=== PATIENT | male | born 1960 | race Caucasian/White ===

== ENCOUNTER 2024-09-23 11:42 | Inpatient (IN) | payer BC ==
[2024-09-23 12:12] LABS: Absolute Eosinophils 0.1 K/uL (0-0.5); Absolute Lymphocytes (CBC) 1.1 K/uL (0.7-4.9); Absolute Monocytes 0.6 K/uL (0.1-1.3); Absolute Neutrophil 6.3 K/uL (1.8-8.0); Basophils % 0.4 % (0-1.3); Eosinophils % 0.9 % (0-4.4); Hematocrit 46.4 % (39.6-49.0); Hemoglobin 16.2 g/dL (13.6-17.9); MCH 31.6 pg (27.0-35.0); MCHC 34.8 g/dL (32.0-36.0); MCV 90.7 fL (80-100); MPV 9.6 fL (7.6-11.3); Monocytes % 7.7 % (3.3-12.3); Nucleated Red Blood Cells % 0.1 % (0-0); Platelets 189 thou/uL (152-406); RBC Red Blood Cell Count 5.12 M/uL (4.33-5.43); Red Cell Distribution Width 13.3 % (12.1-15.2)
[2024-09-23 12:30] LABS: Albumin/Globulin Ratio 1.1 (1.1-1.8); Anion Gap 8.2 mEq/L (5.0-15.0); Bilirubin Total 0.5 mg/dL (0.2-1.0); Globulin 3.7 g/dL (2.3-3.5); Potassium 4.2 mEq/L (3.5-5.1); Protein, Total 7.7 g/dL (6.4-8.2)
--- NOTE | 2024-09-23 13:58 | RAD REPORT ---
EXAMINATION: CT Abdomen Pelvis W Contrast CLINICAL INDICATION: Male, 64 years old. ABD PAIN TECHNIQUE: CT abdomen and pelvis was performed, after the administration of IV contrast, [facility]. Axial, sagittal and coronal reconstructions were obtained. One or more of the following dose reduction techniques were used: Automated exposure control, adjustment of the mA and k V according to patient size, and iterative reconstruction. Unless otherwise specified, incidental findings do not require dedicated imaging follow-up. COMPARISON: No prior exam. FINDINGS: LOWER CHEST: The visualized lung bases are clear. LIVER: Normal in size and contour. No focal lesion. BILIARY SYSTEM: Mildly distended gallbladder. Small radiodense calculi near the neck, largest measuri ng 8 mm. 2.3 cm hypodense structure with thin marginal calcification near the neck as well, could represent cholesterol containing calculus versus diverticulum with calcified wall. Common bile duct i s grossly nondilated. SPLEEN: Normal size. No focal lesion. PANCREAS: No mass, ductal dilation, or jenny-pancreatic fluid. ADRENALS: Normal; no mass. KIDNEYS: Left volar 6 mm.. No hydronephrosis. URINARY BLADDER: Unremarkable. GASTROINTESTINAL TRACT: No evidence of free air, significant intra-abdominal free fluid, bowel obstru ction or abscess. APPENDIX: Normal appendix. LYMPH NODES: No lymphadenopathy. MUSCULOSKELETAL: No acute or suspicious osseous abnormality. ADDITIONAL FINDINGS: Right inguinal hernia containing fat. Mild prostatomegaly. Bulky appearance of t he right aspect of the seminal vesicles measuring up to 4.4 x 3.6 cm. IMPRESSION: Cholelithiasis. Possible 2.3 cm cholesterol containing stones near the neck versus diverticulum with calcified wall. Bulky appearance of the right aspect of the seminal vesicles, could relate to underlying cyst or mass . This can be further evaluated by contrast-enhanced MRI. Other incidental findings as above.
[2024-09-23] MEDS ORDERED: MORPHINE 4 MG/ML SYR ONE ×2 (14:12→16:39)
[2024-09-23] MEDS ORDERED: ONDANSETRON 4 MG/2 ML VIAL ONE (14:12)
[2024-09-23 14:51] LABS: Urine Bilirubin NEGATIVE (Negative); Urine Blood Negative (Negative); Urine Clarity Clear (Clear); Urine Color Light-Yellow (Yellow); Urine Glucose NEGATIVE (Negative); Urine Ketones 1+ (Negative); Urine Microscopic Reflex YN NO UMIC; Urine Nitrite NEGATIVE (Negative); Urine Protein NEGATIVE (Negative); Urine Urobilinogen Normal (Normal); Urine pH 8.5 (5.0-7.0)
[2024-09-23 14:55] LABS: Specific Gravity > 1.030 (1.005-1.030)
--- NOTE | 2024-09-23 15:00 | RAD REPORT ---
EXAMINATION: US Abdomen Exam Limited CLINICAL HISTORY: [facility] cholelithiasis;Abd pain Bed Name: 5 COMPARISON: None. TECHNIQUE: Limited upper abdominal grayscale and color flow sonographic images. FINDINGS: Gallbladder: Gallstones at the neck up to 1.5 cm. No wall thickening or pericholecystic fluid. Bile ducts: No intrahepatic or extrahepatic biliary dilatation. Common bile duct measures 6 mm. Liver: Visualized portions of the liver demonstrate normal echogenicity with no suspicious findings. Fluid: No ascites. IMPRESSION: Cholelithiasis. No sonographic evidence of acute cholecystitis.
--- NOTE | 2024-09-23 15:05 | EDPHYS ---
Physician Documentation [facility] Name: Andrew Luciano Age: 64 yrs Sex: Male : 1960 Arrival Date: 09/23/2024 Time: 11:42 Bed 5 Private MD: ED Physician Jae Serna HPI: 09/23 13:26 This 64 yrs old Male presents to ER via Ambulatory with complaints of Abdominal Pain. rn 13:26 The patient presents with abdominal pain in the right upper quadrant. rn 13:26 Onset: The symptoms/episode began/occurred this morning. Modifying factors: The rn symptoms are alleviated by nothing, the symptoms are aggravated by nothing. Severity of pain: At its worst the pain was mild in the emergency department the pain is unchanged. The patient has experienced similar episodes in the past. Patient reports recently saw Dr. Campuzano for gallbladder problems. Was seen at [place] emergency room and diagnosed with cholelithiasis. Patient continues to have ongoing attacks that last for a few hours. Got worse this morning, called Dr. Campuzano's office and was told to come to emergency room. Has scheduled cholecystectomy tomorrow.. Historical: - Allergies: 11:52 No Known Allergies; iw - PMHx: 11:53 Kidney stone; born with one kidney; iw - PSHx: 11:53 hernia; iw - Immunization history:: Adult Immunizations not up to date. - Infectious Disease History:: Denies. - Social history:: Smoking status: Patient denies any tobacco usage or history of. - Family history:: not pertinent. - Hospitalizations: : No recent hospitalization is reported. ROS: 13:26 Constitutional: Negative for fever, chills, and weight loss, Cardiovascular: Negative rn for chest pain, palpitations, and edema, Respiratory: Negative for shortness of breath, cough, wheezing, and pleuritic chest pain, Abdomen/GI: Positive for abdominal pain with nausea MS/Extremity: Negative for injury and deformity, Skin: Negative for injury, rash, and discoloration, Neuro: Negative for headache, weakness, numbness, tingling, and seizure, Exam: 13:26 Constitutional: This is a well developed, well nourished patient who is awake, alert, rn and in no acute distress. Cardiovascular: Regular rate and rhythm. No pulse deficits. Abdomen/GI: Soft, mild right upper quadrant and epigastric tenderness. No rebound or guarding Vital Signs: 11:51 BP 144 / 84; Pulse 69; Resp 16; Temp 97.6; Pulse Ox 100% on R/A; Weight 99.79 kg; iw Height 6 ft. 3 in. ; Pain 9/10; 12:30 BP 154 / 80; Pulse 64; Resp 15; Pulse Ox 100% ; cm10 14:20 BP 152 / 79; Pulse 63; Resp 15; Pulse Ox 99% ; cm10 15:00 BP 145 / 87; Pulse 71; Resp 15; Pulse Ox 100% ; cm10 16:00 BP 151 / 83; Pulse 65; Resp 17; Pulse Ox 97% on R/A; cm10 17:02 BP 165 / 87; Pulse 77; Resp 18; Pulse Ox 97% on R/A; cm10 11:51 Body Mass Index 27.50 (99.79 kg, 190.5 cm) iw 11:51 Pain Scale: Adult iw MDM: 11:46 Medical Screening Exam initiated rn 15:03 Differential diagnosis: cholecystitis, Cholelithiasis, gastritis, non-specific abd rn pain, pancreatitis. Data reviewed: vital signs, nurses notes, lab test result(s), radiologic studies, CT scan, ultrasound, and as a result, I will admit patient. Consideration of Admission/Observation Patient was admitted/placed on observation. Escalation of care including admission/observation considered. Management of patient was discussed with the following: Entomology Teacher: Management discussed with Dr. Campuzano, once patient admitted to his service, will likely perform cholecystectomy tomorrow.. Counseling: I had a detailed discussion with the patient and/or guardian regarding the historical points, exam findings, and any diagnostic results supporting the discharge/admit diagnosis, lab results, radiology results, the need for further work-up and treatment in the hospital. Response to treatment: the patient's symptoms have mildly improved after treatment, and as a result, I will admit patient. 09/23 11:46 Order name: CBC with Diff; Complete Time: 13: rn 09/23 11:46 Order name: CMP; Complete Time: 13: rn 09/23 11:46 Order name: Lipase; Complete Time: 13: rn 09/23 11:46 Order name: Urinalysis w/ reflexes; Complete Time: 15: rn 09/23 11:46 Order name: CT Abd/Pelvis - IV Contrast Only; Complete Time: 14:08 rn 09/23 12:09 Order name: US Abdomen Limited; Complete Time: 15:01 rn 09/23 11:46 Order name: IV Saline Lock; Complete Time: 12:06 rn 09/23 11:46 Order name: Labs collected and sent; Complete Time: 12:06 rn Administered Medications: 14:17 Drug: morphine IVP or IV 4 mg IVP once over 4 mins Route: IVP; Infused Over: 4 mins; cm10 Site: right antecubital; 14:37 Follow up: Response: No adverse reaction cm10 14:17 Drug: Ondansetron IVP 4 mg IVP once; over 2 minutes Route: IVP; Site: right antecubital;cm10 14:37 Follow up: Response: No adverse reaction cm10 16:49 Drug: morphine IVP or IV 4 mg IVP once over 4 mins Route: IVP; Infused Over: 4 mins; cm10 Site: right antecubital; 17:23 Follow up: Response: No adverse reaction cm10 Disposition Summary: 09/23/24 15:05 Hospitalization Ordered Notes: Hospitalization Status: Inpatient Admission rn Provider: Saleem Campuzano rn Condition: Stable rn Problem: an ongoing problem rn Symptoms: have improved rn Bed/Room Type: Standard rn Location: Telemetry/MedSurg (Inpatient)(09/23/24 16:52) Room Assignment: 213(09/23/24 16:52) iw Diagnosis - Other cholelithiasis without obstruction rn Forms: - Medication Reconciliation Form rn - SBAR form rn - Leadership Thank You Letter rn Signatures: Dispatcher [employer] EDHI Vangie Loving RN RN iw Jae Serna MD MD rn Bradberry, Kelly, RN RN kb3 Jennifer Campuzano RN RN cm10 Corrections: (The following items were deleted from the chart) 11:47 11:47 CBC+H.LAB.BRZ ordered. EDMS EDMS 11:47 11:47 COMPREHENSIVE METABOLIC PANEL+C.LAB.BRZ ordered. EDMS EDMS 11:47 11:47 LIPASE+C.LAB.BRZ ordered. EDMS EDMS 11:47 11:47 Urinalysis+U.LAB.BRZ ordered. EDMS EDMS 11:47 11:47 Abdomen Pelvis W Con+CT.RAD.BRZ ordered. EDMS EDMS 16:39 15:05 Telemetry/MedSurg (Inpatient) rn kb3 16:39 15:05 rn kb3 16:52 16:39 [facility] ER HOLD kb3 iw 16:52 16:39 ERHOLD- kb3 iw
--- NOTE | 2024-09-23 15:05 | ER ---
Nurse's Notes [facility] Name: Andrew Luciano Age: 64 yrs Sex: Male : 1960 Arrival Date: 09/23/2024 Time: 11:42 Bed 5 Private MD: Diagnosis: Other cholelithiasis without obstruction Presentation: 09/23 11:51 Chief complaint: Patient states: upper abd pain since this morning , denies n/v/d , is iw scheduled for cholecystectomy tomorrow with Dr. Campuzano. Coronavirus screen: At this time, the client does not indicate any symptoms associated with coronavirus-19. Ebola Screen: No symptoms or risks identified at this time. Initial Sepsis Screen: Does the patient meet any 2 criteria? No. Patient's initial sepsis screen is negative. Does the patient have a suspected source of infection? No. Patient's initial sepsis screen is negative. Risk Assessment: Do you want to hurt yourself or someone else? Patient reports no desire to harm self or others. Onset of symptoms was September 23, 2024. 11:51 Method Of Arrival: Ambulatory iw 11:51 Acuity: CB 3 iw Historical: - Allergies: 11:52 No Known Allergies; iw - PMHx: 11:53 Kidney stone; born with one kidney; iw - PSHx: 11:53 hernia; iw - Immunization history:: Adult Immunizations not up to date. - Infectious Disease History:: Denies. - Social history:: Smoking status: Patient denies any tobacco usage or history of. - Family history:: not pertinent. - Hospitalizations: : No recent hospitalization is reported. Screenin:06 [facility] ED Fall Risk Assessment (Adult) History of falling in the last 3 months, cm10 including since admission No falls in past 3 months (0 pts) Confusion or Disorientation No (0 pts) Intoxicated or Sedated No (0 pts) Impaired Gait No (0 pts) Mobility Assist Device Used No (0 pt) Altered Elimination No (0 pt) Score/Fall Risk Level 0 - 2 = Low Risk Oriented to surroundings, Maintained a safe environment, Hourly rounding (assess needs \T\ fall precautionary measures) done. Abuse screen: Denies threats or abuse. Denies injuries from another. Nutritional screening: No deficits noted. Tuberculosis screening: No symptoms or risk factors identified. Assessment: 12:06 General: Appears in no apparent distress. uncomfortable, Behavior is calm, cooperative, cm10 appropriate for age. Pain: Complains of pain in right upper quadrant and left upper quadrant Pain currently is 9 out of 10 on a pain scale. Neuro: No deficits noted. Level of Consciousness is awake, alert, obeys commands, Oriented to person, place, time, situation, Appropriate for age. Respiratory: No deficits noted. Airway is patent Respiratory effort is even, unlabored, Respiratory pattern is regular, symmetrical. GI: Bowel sounds present X 4 quads. Abd is soft X 4 quads. Derm: Skin is pink, warm \T\ dry. Musculoskeletal: Range of motion: intact in all extremities. 14:08 Reassessment: PT REQUESTING PAIN MEDS AT THIS TIME. cm10 17:24 Reassessment: Patient appears in no apparent distress at this time. Patient and/or cm10 family updated on plan of care and expected duration. Pain level reassessed. Patient is alert, oriented x 3, equal unlabored respirations, skin warm/dry/pink. Vital Signs: 11:51 BP 144 / 84; Pulse 69; Resp 16; Temp 97.6; Pulse Ox 100% on R/A; Weight 99.79 kg; iw Height 6 ft. 3 in. ; Pain 9/10; 12:30 BP 154 / 80; Pulse 64; Resp 15; Pulse Ox 100% ; cm10 14:20 BP 152 / 79; Pulse 63; Resp 15; Pulse Ox 99% ; cm10 15:00 BP 145 / 87; Pulse 71; Resp 15; Pulse Ox 100% ; cm10 16:00 BP 151 / 83; Pulse 65; Resp 17; Pulse Ox 97% on R/A; cm10 17:02 BP 165 / 87; Pulse 77; Resp 18; Pulse Ox 97% on R/A; cm10 11:51 Body Mass Index 27.50 (99.79 kg, 190.5 cm) iw 11:51 Pain Scale: Adult iw ED Course: 11:44 Patient arrived in ED. mr 11:46 Jae Serna MD is Attending Physician. rn 11:52 Triage completed. iw 11:54 Jennifer Campuzano, RN is Primary Nurse. cm10 12:05 Arm band placed on right wrist. Patient placed in an exam room, on a stretcher. cm10 12:05 Initial lab(s) drawn, by nh, sent to lab. Inserted saline lock: 20 gauge in right cm10 antecubital area, using aseptic technique. Blood collected. Flushed with 10 mL NS. 12:06 Patient has correct armband on for positive identification. Bed in low position. Call cm10 light in reach. Side rails up X2. Pulse ox on. NIBP on. 12:06 CBC with Diff Sent. cm10 12:06 CMP Sent. cm10 12:06 Lipase Sent. cm10 12:52 CT Abd/Pelvis - IV Contrast Only In Process Unspecified. EDMS 13:11 US Abdomen Limited In Process Unspecified. EDMS 15:05 Saleem Campuzano MD is Hospitalizing Provider. rn 17:24 No provider procedures requiring assistance completed. Patient admitted, IV remains in cm10 place. Administered Medications: 14:17 Drug: morphine IVP or IV 4 mg IVP once over 4 mins Route: IVP; Infused Over: 4 mins; cm10 Site: right antecubital; 14:37 Follow up: Response: No adverse reaction cm10 14:17 Drug: Ondansetron IVP 4 mg IVP once; over 2 minutes Route: IVP; Site: right antecubital;cm10 14:37 Follow up: Response: No adverse reaction cm10 16:49 Drug: morphine IVP or IV 4 mg IVP once over 4 mins Route: IVP; Infused Over: 4 mins; cm10 Site: right antecubital; 17:23 Follow up: Response: No adverse reaction cm10 Medication: 12:06 VIS not applicable for this client. cm10 Outcome: 15:05 Decision to Hospitalize by Provider. rn 18:01 Patient left the ED. iw Signatures: Dispatcher [employer] EDCA RemyShweta, Reg Reg Vangie Mendoza RN RN iw Nieto, Roman, MD MD rn Martinez, Clarissa, RN RN cm10 Corrections: (The following items were deleted from the chart) 11:53 11:51 Chief complaint: Patient states: upper abd pain since this morning , denies n/v/d iw iw
[2024-09-23 18:22] VITALS: BMI 27.5
[2024-09-23] MEDS ORDERED: ONDANSETRON 4 MG/2 ML VIAL IV PRN (18:22)
[2024-09-23] MEDS: MORPHINE 4 MG/ML SYR IV PRN (20:46)
[2024-09-24] MEDS: CEFOXITIN 1 GM in NA CHLORIDE 0.9% 50 ML IVPB SCH
[2024-09-24] MEDS: D5 0.45 NS 1,000 ML IV SCH (00:26)
[2024-09-24 05:41] LABS: Anion Gap 6.6 mEq/L (5.0-15.0); Potassium 4.6 mEq/L (3.5-5.1)
[2024-09-24 05:58] LABS: Absolute Eosinophils 0.1 K/uL (0-0.5); Absolute Lymphocytes (CBC) 1.4 K/uL (0.7-4.9); Absolute Monocytes 0.7 K/uL (0.1-1.3); Absolute Neutrophil 5.7 K/uL (1.8-8.0); Basophils % 0.5 % (0-1.3); Eosinophils % 1.3 % (0-4.4); Hemoglobin 14.5 g/dL (13.6-17.9); MCH 31.7 pg (27.0-35.0); MCHC 34.6 g/dL (32.0-36.0); MCV 91.8 fL (80-100); MPV 9.8 fL (7.6-11.3); Monocytes % 8.8 % (3.3-12.3); Neutrophils % 71.4 % (41.7-73.7); Nucleated Red Blood Cells % 0.2 % (0-0); Platelets 176 thou/uL (152-406); RBC Red Blood Cell Count 4.58 M/uL (4.33-5.43); Red Cell Distribution Width 13.1 % (12.1-15.2)
[2024-09-24] MEDS ORDERED: MIDAZOLAM HCL 2 MG/2 ML INJ ONE (08:49)
[2024-09-24] MEDS ORDERED: LIDOCAINE 2% MPF 5 ML VIAL ONE (08:49)
[2024-09-24] MEDS ORDERED: FENTANYL CITR 100 MCG/2 ML ONE ×2 (08:49→10:07)
[2024-09-24] MEDS ORDERED: propofoL 200 MG/20 ML VIAL IV ONE (08:49)
[2024-09-24] MEDS ORDERED: ROCURONIUM 50 MG/5 ML VIAL IV ONE (08:49)
[2024-09-24] MEDS ORDERED: ONDANSETRON 4 MG/2 ML VIAL ONE (08:52)
[2024-09-24] MEDS ORDERED: SUGAMMADEX SODIUM 200 MG/2 ML VIAL IV ONE (09:05)
[2024-09-24] MEDS: Ringers Lactate 1,000 ML IV ONE (09:10)
[2024-09-24] MEDS ORDERED: BUPIVACAINE 0.5% PF 10 ML VIAL ONE (09:24)
[2024-09-24] MEDS ORDERED: EPHEDRINE SULF 50 MG/ML VIAL ONE (09:41)
--- NOTE | 2024-09-24 10:27 | P.BOP ---
Preoperative diagnosis: acute cholecystitis, symptomatic cholelithiasis Postoperative diagnosis: same Primary procedure: Laparoscopic cholecystectomy Estimated blood loss: <10cc Specimen: gb Anesthesia: General Complications: None Transferred to: Recovery Room Condition: Good
[2024-09-24 10:34] VITALS: O2SAT 100
[2024-09-24 13:20] VITALS: BP 124/65; TEMP 97.9
== END 2024-09-24 13:50 | disposition home or self-care (01) | DRG 419 ==
LOC: ER 11:42 → ERHOLD 15:11 → 2ND 17:52
PROVIDERS: ADMIT Surgery; ATTEND Surgery
PROC: 0FT44ZZ Resection of Gallbladder, Percutaneous Endoscopic Approach (ICD-10-PCS; principal; 2024-09-24 09:28)
DX: K80.00 Calculus of gallbladder with acute cholecystitis without obstruction (principal)
CPT/HCPCS: 36415; 74177; 76705; 80048; 80053; 81003; 83690; 85025; 88304; 94010; 96374; 96375; 99284; J0694; J2003; J2250; J2405; J2704; J3010; J7120; J7799; Q9967